=== PATIENT | female | born 1965 | race Asian ===

== ENCOUNTER 2024-10-30 12:59 | Outpatient (CLI) | payer OTHER, SELFPAY ==
--- NOTE | 2024-10-30 13:00 | ECG_ITS ---
Test Date: 2024-10-30 13:20:41 Measurements Intervals [place] Rate: 80 P: 70 CA: 223 QRS: 70 QRSD: 106 T: 50 QT: 385 QTc: 446 Interpretive Statements SINUS RHYTHM WITH FIRST DEGREE AV BLOCK BASELINE ARTIFACT- I, II, AVR, AVL, AVF BORDERLINE ECG No previous ECG available for comparison Electronically Signed On 10-30-2024 13:30:28 CDT by Antoine Rose D.O.
--- OUTSIDE RECORDS SUMMARY | 2024-10-30 13:09 | XMS_ITS | Clinical Summary ---
Author Organization [facility] Address [address] [place] [address] Care Team Providers Care Flatcar Whacker Name Role Phone Lauro Marlow MD Primary Care Provider [phone] Allergies No known active allergies Medications aspirin 81 mg enteric coated tablet Take 81 mg by mouth daily Active pravastatin (PRAVACHOL) 10 mg tablet Take 1 tablet (10 mg total) by mouth daily Active metFORMIN (GLUCOPHAGE) 1,000 mg tablet 2 times daily [address] (PROTONIX) 40 mg EC tablet Take 1 tablet (40 mg total) by mouth daily 30 tablet 1 Active metoclopramide (REGLAN) 5 mg tablet Take 1-2 tablets up to twice daily for nausea and vomiting. 60 tablet 1 1 Active ondansetron ODT (ZOFRAN-ODT) 4 mg disintegrating tablet 4 Active rosuvastatin (CRESTOR) 10 mg tablet Do not take with milk, antacids, or iron.Take or use exactly as directed.Do not take if . 3 Active insulin glargine (LANTUS) 100 unit/mL (3 mL) pen for injection Inject 35 Units under the skin 2 (two) times a day 15 mL 4 Active pen needle, diabetic 32 gauge x 32 needle Use as directed twice a day 100 each 4 Active glucagon (Baqsimi) 3 mg/actuation spray,non-aerosol One spray into one nostril once as directed by provider for low blood sugar. 1 each 4 Active lancets misc Use as directed up to 4 times a day. 100 each 1 4 Active HYDROcodone-acetami nophen (NORCO) 5-325 mg per tabletIndications:P ain Take 1 tablet by mouth every 6 (six) hours as needed for pain 10 tablet 4 Active cyclobenzaprine (FLEXERIL) 10 mg tablet Take 1 tablet (10 mg total) by mouth 2 (two) times a day as needed for muscle spasms 20 tablet 4 Active meloxicam (MOBIC) 15 mg tabletIndications:C hronic right shoulder pain Take 1 tablet (15 mg total) by mouth daily 30 tablet 3 4 11/27/19 25 Active Active Problems Problem Noted Date Diagnosed Date Hypophosphatemia 06/11/2023 Uncontrolled type 2 diabetes mellitus with hyper glycemia 06/11/2023 Diabetic ketoacidosis withou t coma associated with type 2 diabetes mellitus 06/08/2023 Diabetes mellitus 08/30/2020 Epigastric pain 08/30/2020 Nausea and vomiting 01/21/2019 Assessment & Plan (01/21/2019 2:12 PM CDT): Nausea after meals and will sometimes vomit. Pt also having early satiety and can only eat one meal a day. Pt also has known history of uncontrolled diabetes. High suspicion for gastroparesis. Will have patient undergo EGD. If EGD shows food residue or rules out other issues, will trial patient on Reglan. Encounter for screening colonoscopy 01/21/2019 Assessment & Plan (01/21/2019 2:13 PM CDT): Pt has never had screening colonoscopy before. She denies family history of colon cancer. Setup for screening colonoscopy to be done with EGD. Surgical History Surgery Date Site/Laterality Comments SECTION 1992, 1993, 1997, 1998 FLUORO GUIDED INJECTION SHOU LDER LEFT 03/07/2021 Left FLUORO GUIDED INJECTION SHOU LDER LEFT 11/14/2021 Left FLUORO GUIDED ASPIRATION OR INJECTION LARGE JOINT RIGHT 01/01/2024 Right Medical History Medical History Date Comments Body mass index (BMI) of 30.0-30.9 in adult Adult BMI 30.0-30.9 kg/sq m - (Added by TW Conv) Diabetes mellitus (HCC) Hyperlipidemia Type 2 diabetes mellitus (HCC) Family History Medical History Relation Name Comments Cancer Father Family history of malignant neoplasm - (Added by TW Conv) Hyperlipidemia Mother Family histor y of hyperlipidemia - (Added by TW Conv) Hypertension Mother Family history of hypertension - (Added by TW Conv) Relation Name Status Comments Father Mother Social History Tobacco Use Types Packs/Day Years Used Date Smoking Tobacco: Every Day Cigarettes Smokeless Tobacco: Never Alcohol Use Standard Drinks/Week Comments Never 0 (1 standard drink = 0.6 oz pur e alcohol) [facility] Utilities Answer Date Recorded In the past 12 months has e Abr[place], gas, oil, or water [employer] [place] threatened to shut off services in your home? No 06/10/2023 Social Connection and Isolat ion Panel [NHANES] Answer Date Recorded In a typical week, how many times do you talk on the phone with family, friends, or neighbors? More than three times a week 06/10/2023 How often do you get togethe r with friends or relatives? More than three times a week 06/10/2023 How often do you attend chur ch or worship services? Never 06/10/2023 Do you belong to any clubs o r organizations such as taoist groups, unions, fraternal or athletic groups, or school groups? No 06/10/2023 How often do you attend meet ings of the clubs or organizations you belong to? Never 06/10/2023 Are you , , di vorced, , never , or living with a partner? 06/10/2023 AUDIT-C Answer Date Recorded Frequency of Alcohol Consumption Never 01/21/2019 Average Number of Drinks Not on file 019 Frequency of Binge Drinking Not on file 08/2018 Overall Financial Resource Strain (CARDIA) Answe r Date Recorded How hard is it for you to pa y for the very basics like food, housing, medical care, and heating? Not hard at all 06/10/2023 Hunger Vital Sign Answer Date Recorded Within the past 12 months, y ou worried that your food would run out before you got the money to buy more. Never true 06/10/19 24 Within the past 12 months, t he food you bought just didn't last and you didn't have money to get more. Never true 06/10/2023 PRAPARE - Transportation Answer Date Re corded In the past 12 months, has l ack of transportation kept you from medical appointments or from getting medications? No 05/21 In the past 12 months, has l ack of transportation kept you from meetings, work, or from getting things needed for daily living? No 06/10/2023 Housing Stability Vital Sign Answer Magdy e Recorded In the last 12 months, was t here a time when you were not able to pay the mortgage or rent on time? No 06/10/2023 In the last 12 months, how many places have you lived? 1 06/10/2023 In the last 12 months, was t here a time when you did not have a steady place to sleep or slept in a long-term (including now)? No 06/10/2023 Personal Safety Answer Date Recorded Have you ever been in or are you currently in a harmful physical or emotional relationship or is someone making you feel afraid or unsafe? Denies 08/30/2023 Comments No Sex and Gender Information Value Date Recorded Sex Assigned at Not on file Legal Sex Female 7:44 PM WOMEN DESIGNER Gender Identity Not on file Sexual Orientation Not on file Obstetrics History Last Filed Vital Signs Vital Sign Reading Time Taken Comments Blood Pressure 147/90 08/30/2023 4:00 PM CDT Pulse 82 08/30/2023 4:00 PM CDT Temperature 37 C (98.6 F) 08/30/2023 12:48 PM CDT Respiratory Rate 20 08/30/2023 3:50 PM CDT Oxygen Saturation 99% 08/30/2023 4:00 PM CDT Inhaled Oxygen Concentration - - Weight 81.9 kg (180 lb 8.9 oz) 08/30/2023 12:48 PM CDT Height 165 cm (5' 4.96) 06/08/2023 5:00 PM WOMEN DESIGNER Body Mass Index 30.08 06/08/2023 5:00 PM WOMEN DESIGNER Plan of Treatment Health Maintenance Due Date Last Done Comments Albumin Creatinine Ratio, Urine 1965 Breast Cancer Screening-Mammogram 1967 Cervical Cancer Screening 1967 Depression Screening 1967 Hepatitis C Screening 1967 Dilated Eye Exam 1967 Foot Exam 1967 Hepatitis B Screening 07/30/1985 Regular Well Visit/Exam 18-64 07/30/1985 Lipid Panel 07/22/2014 07/22/2013 Hemoglobin A1C 12/08/2023 06/09/2023 Covid-19 Vaccine (2023-2 5 season) 2024 05/01/2021, 09/16/2020, 08/19/2020 eGFR 06/10/2024 06/10/2023, 05/21, 06/09/2023, Additional history exists Influenza Vaccine (Season Ended) 2025 03/11/2012, 04/07/2010, 03/03/2009, Additional history exists DTaP/Tdap/Td Vaccine (3 - Td or Tdap) 01/12/2029 01/12/2019, 03/19/2007 Colon Cancer Screening-Colonoscopy 02/09/2029 02/09/2019 Colon Cancer Screening-CT Colonography Discontinued 02/09/2019 Colon Cancer Screening-DNA Stool Discontinued 02/10/20 Colon Cancer Screening-FIT Discontinued 02/09/2019 Colon Cancer Screening-Sigmoidoscopy Discontinued 02/09/2019 Zoster Vaccine Completed 03/08/2020, 01/12/2019 Pneumococcal vaccine <65 Completed 06/05/2022 Medical Devices Implanted Type Area Numerical Control Programmer Device Identifier Shelf Expiration Date Model / Serial / Lot Teeth N/A: Mouth Procedures Procedure Name Priority Date/Time Associated Diagnosis Comments EGFR Timed 06/10/2023 4:07 AM WOMEN DESIGNER HEMOGLOBIN A1C Routine 06/09/2023 4:24 AM WOMEN DESIGNER COLONOSCOPY 02/09/2019 1:56 PM CDT PLASMA LIPID PANEL Routine 07/22/2013 5: 01 AM WOMEN DESIGNER from Last 3 Months or Most Recently Relevant to Health Maintenance Results * eGFR (06/10/2023 4:07 AM WOMEN DESIGNER) eGFR 106 mL/min/1. 73 m2 [facility] Comment: Interpretive Data Reference Interval Normal >/= 90 mL/min/1.73m2 Mildly decreased* 60 - 89 mL/min/1.73m2 Mildly to moderately decreased 45 - 59 mL/min/1.73m2 Moderately to severely decreased 30 - 44 mL/min/1.73m2 Severely decreased 15 - 29 mL/min/1.73m2 Kidney Failure < 15 mL/min/1.73m2 *Relative to young adult level Estimated glomerular filtration rate is determined by the 2020 CKD-EPI equation recommended by the National Kidney Foundation (A Unifying Approach to GFR Estimation: Recommendations of the NKF-ASK Task Force on Reassessing the Inclusion of Race in Diagnosing Kidney Disease, JASN 2020). The CKD-EPI equation should not be used for patients with unstable renal function and has not been validated in children and those over 70. Current interpretive data was last reviewed 2021. Testing performed by: [address] [address] Blood 06/10/2023 4:07 AM WOMEN DESIGNER 06/10/2023 4:16 AM WOMEN DESIGNER us Oscar Wallace MD LAB BLOOD ORDERABLES F inal Result [facility] [address] [facility] [place] [address] * (ABNORMAL) Hemoglobin A1c (06/09/2023 4:24 AM WOMEN DESIGNER) Hgb A1C 10.8(H) 4.0 - 5.6 % [facility] Comment:Testing performed by : [address] [address] Estimated Average Glucose 263 mg/dL [facility] Comment: The ADA recommends reporting an estimated Average Glucose (eAG) with all Hemoglobin A1c results using the equation derived from a study of 507 normal and diabetic adults. Minority populations were underrepresented and children were not included. (Diabetes Care 31:5877-2940, 2008). The eAG is not equivalent to a fasting glucose. Testing performed by: [facility], [address] [place] [address], [place]., [address] Blood 06/09/2023 4:24 AM WOMEN DESIGNER 06/09/2023 4:31 AM WOMEN DESIGNER us Isha Garcia MD LAB BLOOD ORDERABLES Final Result [facility] [address] [facility] [place] [address] * COLONOSCOPY (02/09/2019 1:56 PM CDT) Anatomical Region Laterality Modality Other Narrative Procedure Note Dioni Hsieh MD - 02/09/2019 1:56 PM CDT [facility] Patient Name: Jericho Solitario Procedure Date: 02/09/2019 1:56 PM Date of : 1965 Admit Type: Outpatient Age: 53 Gender: Female Attending MD: Dioni Hsieh M.D. Room: [facility]COPY ROOM 1 Note Status: Finalized Patient Profile: This is a 53 year old female. No family history of colon cancer. Screening colonoscopy. Procedure: Colonoscopy Indications: This is the patient's first colonoscopy, Screeningfor colorectal malignant neoplasm Referring MD: Jorge Nelson M.D. Providers: Dioni Hsieh M.D. Impression: - Mild diverticulosis in the cecum and ascendingcolon. - Three 2 to 3 mm polyps in the rectum, removed witha jumbo cold forceps. Resected and retrieved. - Internal hemorrhoids. Recommendation: - Await pathology results. - Repeat colonoscopy in 5-10 years for screening purposes. - Continue present medications. Medicines: Monitored Anesthesia Care Complications: No immediate complications. Estimated Blood Loss: Estimated blood loss: none. Procedure: Pre-Anesthesia Assessment: - Prior to the procedure, a History and Physical was performed, and patient medications and allergieswere reviewed. The patient's tolerance of previous anesthesia was also reviewed. The risks and benefitsof the procedure and the sedation options and riskswere discussed with the patient. All questions were answered, and informed consent was obtained. Prior Anticoagulants: The patient has taken no previous anticoagulant or antiplatelet agents. ASA Grade Assessment: II - A patient with mild systemicdisease. After reviewing the risks and benefits, the patientwas deemed in satisfactory condition to undergo the procedure. The benefits, risks and alternatives of theprocedure and sedation were discussed and informed consent was obtained. All questions were answered. Please referto the signed informed consent document in the medical record. Bowel prep was administered using a splitdose. The scope was passed under direct vision. ThePediatric Colonoscope PCF-H190L [id number] was introducedthrough the anus and advanced to the the cecum, identifiedby appendiceal orifice and ileocecal valve. The qualityof the bowel preparation was good. The bowelpreparation used was Miralax. Findings: The perianal and digital rectal examinations were normal. The cecum appeared normal. The terminal ileum was normal The colon (entire examined portion) appeared normal overall. Fewsmall isolated diverticuli noted in the cecum and proximal ascendingcolon. Three sessile polyps were found in the rectum. The polyps were 2 to 3mm in size. These polyps were removed with a jumbo cold forceps.Resection and retrieval were complete. Internal hemorrhoids were found during retroflexion. The hemorrhoids were small. Electronically signed by Dioni Hsieh M.D. Dioni Hsieh M.D. 02/09/2019 3:05:51 PM Number of Addenda: 0 Note Initiated On: 02/09/2019 1:56 PM Procedure Code(s): --- Professional --- 16218, Colonoscopy, flexible; with biopsy, single or multiple Diagnosis Code(s): --- Professional --- Z12.11, Encounter for screening for malignant neoplasm of colon K64.8, Other hemorrhoids K62.1, Rectal polyp CPT copyright 2017 [employer]. All rights reserved. The codes documented in this report are preliminary and upon data coder operator reviewmay be revised to meet current compliance requirements. Recognized by the [place] [employer] for promoting quality in endoscopy Dioni Hsieh MD ENDOSCOPY PROCEDURES Final Result * (ABNORMAL) Plasma lipid panel (07/22/2013 5:01 AM WOMEN DESIGNER) Cholesterol 193 140 - 199 mg/dl HISTORICAL RESULTS Triglycerides 437(H) 20 - 150 mg/dl HISTORICAL RESULTS HDL 34(L) 40 - 60 mg/dl HISTORICAL RESULTS LDL See note 65 - 100 mg/dl HISTORICAL RESULTS Plasma 07/22/2013 5:01 AM WOMEN DESIGNER Narrative HISTORICAL RESULTS - 07/22/2013 9:32 AM WOMEN DESIGNER Unable to calculate LDL due to elevated triglyceride. Lauren Rodrigues MD LAB BLOOD ORDERABLES Final Resu lt HISTORICAL RESULTS from Last 3 Months or Most Recently Relevant to Health Maintenance Insurance [facility] [place] [address] [facility] [place] [address] [facility] Advance Directives For more information, please contact: [phone] * Full Code (Latest Code Status on File) Date Activated Date Inactivated Comments 06/08/2023 4:35 PM 06/11/2023 3:56 PM * Full Code Date Activated Date Inactivated Comments 02/09/2019 1:15 PM 02/09/2019 7:43 PM * Full Code Date Activated Date Inactivated Comments 02/09/2019 1:15 PM 02/09/2019 1:15 PM Care Teams Flatcar Whacker Relationship Specialty Start Date End Date Lauro Marlow MD PCP - General 05/27/17
--- OUTSIDE RECORDS SUMMARY | 2024-10-30 13:09 | XMS_ITS | Clinical Summary ---
Author Organization [facility] Address [address] [place] [address] Care Team Providers Care Vascular Manager Name Role Phone Unavailable Primary Care Provider Unavailabl e Social History Tobacco Use Types Packs/Day Years Used Date Smoking Tobacco: Never Assessed Comments Unknown Sex and Gender Information Value Date Recorded Sex Assigned at Not on file Legal Sex Female 7:51 AM FORMING MACHINE UPKEEP MECHANIC Gender Identity Not on file Sexual Orientation Not on file Plan of Treatment Health Maintenance Due Date Last Done Comments Hepatitis C Virus (HCV) Screening 1965 TdaP Immunization 1965 Hepatitis B Immunization (1 of 3 - 19+ 3-dose series) 07/30/1986 Pap Smear 07/30/1988 Cervical Cancer Screening (CCS) 07/30/1997 HPV/Cotest 07/30/1997 Colonoscopy 07/30/2012 Colorectal Cancer Screening 07/30/2012 Cologuard 07/30/2017 Immunochemical Fecal Occult Blood 07/30/2017 Mammogram 07/30/2017 Pneumococcal Immunization (5 0+ years) (1 of 1 - PCV) 07/30/2017 Zoster Immunization (1 of 2) 07/30/2017 Influenza Immunization (#1) 2024 SARS-COV-2 Immunization ( - season) 2024 Respiratory Syncytial Virus (RSV) Immunization (Adult) (1 - 1-dose 75+ series) 07/30/2042 Meningococcal Immunization (ACWY) Aged Out No longer eligible based on patient's age to complete this topic Pneumococcal Immunization Combined Aged Out No longer eligible based on patient's age to complete this topic Rotavirus Immunization Aged Out No lo nger eligible based on patient's age to complete this topic Insurance [employer] on file
--- OUTSIDE RECORDS SUMMARY | 2024-10-30 13:09 | XMS_ITS | Referral Summary ---
Author Organization [facility] Address [address] [place] [address] Care Team Providers Care Tongue Presser Name Role Phone Lauro Marlow MD Primary Care Provider [phone] Allergies No known active allergies Medications aspirin [...] screening colonoscopy to be done with EGD. Social History Tobacco Use Types Packs/Day Years Used Date Smoking Tobacco: Every Day Cigarettes Smokeless Tobacco: Never Alcohol Use Standard Drinks/Week Comments Never 0 (1 standard drink = 0.6 oz pur e alcohol) [facility] Utilities Answer Date Recorded In the past 12 months has th e electric, gas, oil, or water company threatened to shut off services in your [...] often do you attend chur ch or tenriism services? Never 06/10/2023 Do you belong to any clubs o r organizations such as adventism groups, unions, fraternal or athletic groups, or [...] place to sleep or slept in a half-way (including now)? No 06/10/2023 Personal Safety Answer Date Recorded Have you ever been in or are you currently in a harmful physical or emotional relationship or is someone making you feel afraid or unsafe? Denies 08/30/2023 Comments No Sex and Gender Information Value Date Recorded Sex Assigned at Not on file Legal Sex Female 7:44 PM GUNCOTTON PACKER Gender Identity Not on file Sexual Orientation Not on file Last Filed Vital Signs Vital Sign Reading [...] 165 cm (5' 4.96) 06/08/2023 5:00 PM GUNCOTTON PACKER Body Mass Index 30.08 06/08/2023 5:00 PM GUNCOTTON PACKER Plan of Treatment Not on file Medical Devices Implanted Type Area Director Security Risk Management Device Identifier Shelf Expiration Date Model / Serial / Lot Teeth N/A: Mouth Procedures Procedure Name Priority Date/Time Associated Diagnosis Comments EGFR Timed 06/10/2023 4:07 AM GUNCOTTON PACKER HEMOGLOBIN A1C Routine 06/09/2023 4:24 AM GUNCOTTON PACKER COLONOSCOPY 02/09/2019 1:56 PM CDT PLASMA LIPID PANEL Routine 07/22/2013 5: 01 AM GUNCOTTON PACKER from Last 3 Months or Most Recently Relevant to Health Maintenance Results * eGFR (06/10/2023 4:07 AM GUNCOTTON PACKER) eGFR 106 mL/min/1. 73 m2 [facility] [...] was last reviewed 2021. Testing performed by: [address] [address] Blood 06/10/2023 4:07 AM GUNCOTTON PACKER 06/10/2023 4:16 AM GUNCOTTON PACKER us Oscar Wallace MD LAB BLOOD ORDERABLES F inal Result [facility] [address] [facility] Department [place] [address] * (ABNORMAL) Hemoglobin A1c (06/09/2023 4:24 AM GUNCOTTON PACKER) Hgb A1C 10.8(H) 4.0 - 5.6 % [facility] Comment:Testing performed by : [address] [address] Estimated Average Glucose 263 mg/dL [facility] Comment: The ADA recommends reporting an estimated Average Glucose (eAG) with all Hemoglobin A1c results using the equation derived from a study of 507 normal and diabetic adults. Minority populations were underrepresented and children were not included. (Diabetes Care 31:3563-9772, 2008). The eAG is not equivalent to a fasting glucose. Testing performed by: [address] [place] [address] Blood 06/09/2023 4:24 AM GUNCOTTON PACKER 06/09/2023 4:31 AM GUNCOTTON PACKER us Isha Garcia MD LAB BLOOD ORDERABLES Final Result [facility] [address] [facility] Department [place] [address] * COLONOSCOPY (02/09/2019 1:56 PM CDT) Anatomical Region Laterality Modality Other Narrative Procedure Note Dioni Hsieh MD - 02/09/2019 1:56 PM CDT [facility] Patient Name: Jericho Solitario Procedure Date: 02/09/2019 1:56 PM Date of : 1965 Admit Type: Outpatient Age: 53 Gender: Female Attending MD: Dioni Hsieh M.D. Room: [facility] RO[facility] 1 Note Status: Finalized Patient Profile: This is a 53 year old female. No family history of colon cancer. Screening colonoscopy. Procedure: Colonoscopy Indications: This is the patient's first colonoscopy, Screeningfor colorectal malignant neoplasm Referring MD: Jorge Nelson M.D. Providers: Ahdelmi Hsieh M.D. Impression: - Mild diverticulosis in [...] passed under direct vision. ThePediatric Colonoscope PCF-H190L [id number] was introducedthrough the anus and advanced to [...] 1:56 PM Procedure Code(s): --- Professional --- 81744, Colonoscopy, flexible; with biopsy, single or multiple Diagnosis Code(s): --- Professional --- Z12.11, Encounter for screening for malignant neoplasm of colon K64.8, Other hemorrhoids K62.1, Rectal polyp CPT copyright 2017 [employer]. All rights reserved. The codes documented in this report are preliminary and upon middle school librarian reviewmay be revised to meet current compliance requirements. Recognized by the [employer] for promoting quality in endoscopy Doini Hsieh MD ENDOSCOPY PROCEDURES Final Result * (ABNORMAL) Plasma lipid panel (07/22/2013 5:01 AM GUNCOTTON PACKER) Cholesterol 193 140 - 199 mg/dl HISTORICAL RESULTS Triglycerides 437(H) 20 - 150 mg/dl HISTORICAL RESULTS HDL 34(L) 40 - 60 mg/dl HISTORICAL RESULTS LDL See note 65 - 100 mg/dl HISTORICAL RESULTS Plasma 07/22/2013 5:01 AM GUNCOTTON PACKER Narrative HISTORICAL RESULTS - 07/22/2013 9:32 AM GUNCOTTON PACKER Unable to calculate LDL due to elevated triglyceride. Lauren Rodrigues MD LAB BLOOD ORDERABLES Final Resu lt HISTORICAL RESULTS from Last 3 Months or Most Recently Relevant to Health [place] [address] [facility] [place] [address] [facility] [place] [address] [facility] Advance Directives For more information, please contact: [phone] * Full Code (Latest Code Status on File) Date Activated Date Inactivated Comments 06/08/2023 4:35 PM 06/11/2023 3:56 PM * Full Code Date Activated Date Inactivated Comments 02/09/2019 1:15 PM 02/09/2019 7:43 PM * Full Code Date Activated Date Inactivated Comments 02/09/2019 1:15 PM 02/09/2019 1:15 PM Care Teams Tongue Presser Relationship Specialty Start Date End Date Lauro Marlow MD PCP - General 05/27/17
[2024-10-30 13:38] LABS: Anion Gap 8 mmol/L (4-12); Blood Urea Nitrogen 16 mg/dL (7-17); Calcium 9.4 mg/dL (8.4-10.2); Carbon Dioxide 27 mmol/L (22-30); Chloride 102 mmol/L (98-107); Estimated Glomerular Filt Rate > 60; Glucose 310 mg/dL (65-110); Potassium 3.8 mmol/L (3.4-5.0); Sodium 137 mmol/L (137-145)
== END 2024-10-30 13:00 | disposition home or self-care (01) ==
LOC: ANHSURGERY 13:06
PROVIDERS: Anesthesiology; PCP Family Medicine; Visit Provider Plastic Surgery
DX: Z01.818 Encounter for other preprocedural examination (principal); E11.9 Type 2 diabetes mellitus without complications; Z72.0 Tobacco use; R94.31 Abnormal electrocardiogram [ECG] [EKG]
CPT/HCPCS: 36415; 80048; 93005

== ENCOUNTER 2024-11-02 09:57 | Outpatient (CLI) | payer OTHER, SELFPAY ==
--- OUTSIDE RECORDS SUMMARY | 2024-11-02 10:44 | XMS_ITS | Encounter Summary ---
Author Organization [facility] Address [address] [place] [id number] Care Team Providers Care Handkerchief Presser Name Role Phone Gabriele Woodruff MD Primary Care Provider Encounter Details Date Type Department Care Team (Late st Contact Info) Description 06/25/2024 YellowPepper Message Enc [facility] Family Medicine - [place] [address], [address] [place] [id number] Contents First, [facility] Provider Appointment Needed Social History Tobacco Use Types Packs/Day Years Used Date Smoking Tobacco: Every Day Cigarettes 0.5 32 Passive Smoke Exposure: Current Comments:On Chantix. 1-2 cig /day- physician will discuss smoking cessation Passive Exposure Comments:pt has not smoked in four days Alcohol Use Standard Drinks/Week Comments Never 0 (1 standard drink = 0.6 oz pur e alcohol) AUDIT-C Answer Date Recorded Q1: How often do you have a drink containing alc ohol? Never 11/11/2020 Average Number of Drinks Not on file 021 Frequency of Binge Drinking Not on file 10/19 PHQ-2 Answer Date Recorded Patient Health Questionnaire-2 Score 0 04/01/2024 Comments No Sex and Gender Information Value Date Recorded Sex Assigned at Female 06/11/2024 11:07 AM MACHINE ASSEMBLER Legal Sex Female 5:11 PM CDT Gender Identity Not on file Sexual Orientation Not on file documented as of this encounter Plan of Treatment Not on file documented as of this encounter Visit Diagnoses Not on filedocumented in this encounter Additional Health Concerns Assessment Noted Time PHQ-9 Depression Total Score: 0 11/06/20 24 2:03 PM MACHINE ASSEMBLER documented as of this encounter Care Teams Handkerchief Presser Relationship Specialty Start Date End Date Gabriele Woodruff MD [address] [address] PCP - General FAMILY PRACTICE 11/07/22 documented as of this encounter
--- OUTSIDE RECORDS SUMMARY | 2024-11-02 10:44 | XMS_ITS | Clinical Summary ---
Author Organization [facility] Address [address] [place] [address] Care Team Providers Care Asphalt Spreader Name Role Phone Lauro Marlow MD Primary Care Provider [phone] Allergies No known active allergies Medications aspirin [...] drink = 0.6 oz pur e alcohol) [facility] Utilities Answer Date Recorded In the past 12 months has e [employer], gas, oil, or water [employer] threatened to shut off services in your [...] often do you attend chur ch or bahai services? Never 06/10/2023 Do you belong to any clubs o r organizations such as pentecostalism groups, unions, fraternal or athletic groups, or [...] place to sleep or slept in a senior care (including now)? No 06/10/2023 Personal Safety Answer Date Recorded Have you ever been in or are you currently in a harmful physical or emotional relationship or is someone making you feel afraid or unsafe? Denies 08/30/2023 Comments No Sex and Gender Information Value Date Recorded Sex Assigned at Not on file Legal Sex Female 7:44 PM MASONRY CONTRACTOR ADMINISTRATOR Gender Identity Not on file Sexual Orientation [...] 165 cm (5' 4.96) 06/08/2023 5:00 PM MASONRY CONTRACTOR ADMINISTRATOR Body Mass Index 30.08 06/08/2023 5:00 PM MASONRY CONTRACTOR ADMINISTRATOR Plan of Treatment Health Maintenance Due Date [...] Completed 06/05/2022 Medical Devices Implanted Type Area Production Cloth Cutter Device Identifier Shelf Expiration Date Model / Serial / Lot Teeth N/A: Mouth Procedures Procedure Name Priority Date/Time Associated Diagnosis Comments EGFR Timed 06/10/2023 4:07 AM MASONRY CONTRACTOR ADMINISTRATOR HEMOGLOBIN A1C Routine 06/09/2023 4:24 AM MASONRY CONTRACTOR ADMINISTRATOR COLONOSCOPY 02/09/2019 1:56 PM CDT PLASMA LIPID PANEL Routine 07/22/2013 5: 01 AM MASONRY CONTRACTOR ADMINISTRATOR from Last 3 Months or Most Recently Relevant to Health Maintenance Results * eGFR (06/10/2023 4:07 AM MASONRY CONTRACTOR ADMINISTRATOR) eGFR 106 mL/min/1. 73 m2 [facility] [...] was last reviewed 2021. Testing performed by: [address] [address] Blood 06/10/2023 4:07 AM MASONRY CONTRACTOR ADMINISTRATOR 06/10/2023 4:16 AM MASONRY CONTRACTOR ADMINISTRATOR us Oscar Wallace MD LAB BLOOD ORDERABLES F inal Result [facility] [address] [facility] Department [place] [address] * (ABNORMAL) Hemoglobin A1c (06/09/2023 4:24 AM MASONRY CONTRACTOR ADMINISTRATOR) Hgb A1C 10.8(H) 4.0 - 5.6 % [facility] Comment:Testing performed by : [address] [address] Estimated Average Glucose 263 mg/dL [facility] Comment: The ADA recommends reporting an estimated Average Glucose (eAG) with all Hemoglobin A1c results using the equation derived from a study of 507 normal and diabetic adults. Minority populations were underrepresented and children were not included. (Diabetes Care 31:3677-8899, 2008). The eAG is not equivalent to a fasting glucose. Testing performed by: [facility], [address] [place] [address], [place]., [address] Blood 06/09/2023 4:24 AM MASONRY CONTRACTOR ADMINISTRATOR 06/09/2023 4:31 AM MASONRY CONTRACTOR ADMINISTRATOR us Isha Garcia MD LAB BLOOD ORDERABLES Final Result [facility] [address] [facility] Department [place] [address] * COLONOSCOPY (02/09/2019 1:56 PM CDT) Anatomical Region Laterality Modality Other Narrative Procedure Note Dioni Hsieh MD - 02/09/2019 1:56 PM CDT [facility] Patient Name: Jericho Solitario Procedure Date: 02/09/2019 1:56 PM Date of : 1965 Admit Type: Outpatient Age: 53 Gender: Female Attending MD: Dioni Hsieh M.D. Room: [facility] RO[facility] 1 Note Status: Finalized Patient [...] passed under direct vision. ThePediatric Colonoscope PCF-H190L [id number] was introducedthrough the anus and advanced to [...] 1:56 PM Procedure Code(s): --- Professional --- 64975, Colonoscopy, flexible; with biopsy, single or multiple Diagnosis Code(s): --- Professional --- Z12.11, Encounter for screening for malignant neoplasm of colon K64.8, Other hemorrhoids K62.1, Rectal polyp CPT copyright 2017 [employer]. All rights reserved. The codes documented in this report are preliminary and upon an/ssn 2 4 operator reviewmay be revised to meet current compliance requirements. Recognized by the [employer] for promoting quality in endoscopy Dioni Hsieh MD ENDOSCOPY PROCEDURES Final Result * (ABNORMAL) Plasma lipid panel (07/22/2013 5:01 AM MASONRY CONTRACTOR ADMINISTRATOR) Cholesterol 193 140 - 199 mg/dl HISTORICAL RESULTS Triglycerides 437(H) 20 - 150 mg/dl HISTORICAL RESULTS HDL 34(L) 40 - 60 mg/dl HISTORICAL RESULTS LDL See note 65 - 100 mg/dl HISTORICAL RESULTS Plasma 07/22/2013 5:01 AM MASONRY CONTRACTOR ADMINISTRATOR Narrative HISTORICAL RESULTS - 07/22/2013 9:32 AM MASONRY CONTRACTOR ADMINISTRATOR Unable to calculate LDL due to elevated triglyceride. Lauren Rodrigues MD LAB BLOOD ORDERABLES Final Resu lt HISTORICAL RESULTS from Last 3 Months or Most Recently Relevant to Health Maintenance Insurance [facility] [place] [address] [facility] [place] [address] [facility] Advance Directives For more information, please contact: [phone] * Full Code (Latest Code Status on File) Date Activated Date Inactivated Comments 06/08/2023 4:35 PM 06/11/2023 3:56 PM * Full Code Date Activated Date Inactivated Comments 02/09/2019 1:15 PM 02/09/2019 7:43 PM * Full Code Date Activated Date Inactivated Comments 02/09/2019 1:15 PM 02/09/2019 1:15 PM Care Teams Asphalt Spreader Relationship Specialty Start Date End Date Lauro Marlow MD PCP - General 05/27/17
--- OUTSIDE RECORDS SUMMARY | 2024-11-02 10:44 | XMS_ITS | Referral Summary ---
Author Organization [facility] Address [address] [place] [address] Care Team Providers Care Obiee Consultant Name Role Phone Lauro Marlow MD Primary Care Provider [phone] Allergies No known active allergies Medications aspirin [...] drink = 0.6 oz pur e alcohol) [facility] Utilities Answer Date Recorded In the [...] any clubs o r organizations such as restorationist groups, unions, fraternal or athletic groups, or [...] place to sleep or slept in a group home (including now)? No 06/10/2023 Personal Safety Answer Date Recorded Have you ever been in or are you currently in a harmful physical or emotional relationship or is someone making you feel afraid or unsafe? Denies 08/30/2023 Comments No Sex and Gender Information Value Date Recorded Sex Assigned at Not on file Legal Sex Female 7:44 PM SOCIAL GROUP WORKER Gender Identity Not on file Sexual Orientation [...] 165 cm (5' 4.96) 06/08/2023 5:00 PM SOCIAL GROUP WORKER Body Mass Index 30.08 06/08/2023 5:00 PM SOCIAL GROUP WORKER Plan of Treatment Not on file Medical Devices Implanted Type Area Health Care Facilities Inspector Device Identifier Shelf Expiration Date Model / Serial / Lot Teeth N/A: Mouth Procedures Procedure Name Priority Date/Time Associated Diagnosis Comments EGFR Timed 06/10/2023 4:07 AM SOCIAL GROUP WORKER HEMOGLOBIN A1C Routine 06/09/2023 4:24 AM SOCIAL GROUP WORKER COLONOSCOPY 02/09/2019 1:56 PM CDT PLASMA LIPID PANEL Routine 07/22/2013 5: 01 AM SOCIAL GROUP WORKER from Last 3 Months or Most Recently Relevant to Health Maintenance Results * eGFR (06/10/2023 4:07 AM SOCIAL GROUP WORKER) eGFR 106 mL/min/1. 73 m2 [facility] [...] was last reviewed 2021. Testing performed by: [address] [address] Blood 06/10/2023 4:07 AM SOCIAL GROUP WORKER 06/10/2023 4:16 AM SOCIAL GROUP WORKER us Oscar Wallace MD LAB BLOOD ORDERABLES F inal Result [facility] [address] [facility] Department [place] [address] * (ABNORMAL) Hemoglobin A1c (06/09/2023 4:24 AM SOCIAL GROUP WORKER) Hgb A1C 10.8(H) 4.0 - 5.6 % [facility] Comment:Testing performed by : [address] [address] Estimated Average Glucose 263 mg/dL [facility] Comment: The ADA recommends reporting an estimated Average Glucose (eAG) with all Hemoglobin A1c results using the equation derived from a study of 507 normal and diabetic adults. Minority populations were underrepresented and children were not included. (Diabetes Care 31:5413-4633, 2008). The eAG is not equivalent to a fasting glucose. Testing performed by: [address] [place]., [address] Blood 06/09/2023 4:24 AM SOCIAL GROUP WORKER 06/09/2023 4:31 AM SOCIAL GROUP WORKER us Isha Garcia MD LAB BLOOD ORDERABLES Final Result [facility] [address] [facility] Department [place] [address] * COLONOSCOPY (02/09/2019 1:56 PM CDT) Anatomical Region Laterality Modality Other Narrative Procedure Note Dioni Hsieh MD - 02/09/2019 1:56 PM CDT [facility] Patient Name: Jericho Solitario Procedure Date: 02/09/2019 1:56 PM Date of : 1965 Admit Type: Outpatient Age: 53 Gender: Female Attending MD: Dioni Hsieh M.D. Room: [facility] ENDOSCOPY ROOM 1 Note Status: Finalized Patient [...] passed under direct vision. ThePediatric Colonoscope PCF-H190L [id number] was introducedthrough the anus and advanced to [...] 1:56 PM Procedure Code(s): --- Professional --- 455[address], Colonoscopy, flexible; with biopsy, single or multiple Diagnosis Code(s): --- Professional --- Z12.11, Encounter for screening for malignant neoplasm of colon K64.8, Other hemorrhoids K62.1, Rectal polyp CPT copyright 2017 [employer]. All rights reserved. The codes documented in this report are preliminary and upon ham curer reviewmay be revised to meet current compliance requirements. Recognized by the [employer] G[employer] for promoting quality in endoscopy Dioni Hsieh MD ENDOSCOPY PROCEDURES Final Result * (ABNORMAL) Plasma lipid panel (07/22/2013 5:01 AM SOCIAL GROUP WORKER) Cholesterol 193 140 - 199 mg/dl HISTORICAL RESULTS Triglycerides 437(H) 20 - 150 mg/dl HISTORICAL RESULTS HDL 34(L) 40 - 60 mg/dl HISTORICAL RESULTS LDL See note 65 - 100 mg/dl HISTORICAL RESULTS Plasma 07/22/2013 5:01 AM SOCIAL GROUP WORKER Narrative HISTORICAL RESULTS - 07/22/2013 9:32 AM SOCIAL GROUP WORKER Unable to calculate LDL due to elevated triglyceride. Lauren Rodrigues MD LAB BLOOD ORDERABLES Final Resu lt HISTORICAL RESULTS from Last 3 Months or Most Recently Relevant to Health Maintenance [place] [address] [facility] [address] [place] [address] [facility] [place] [address] [facility] Advance Directives For more information, please contact: [phone] * Full Code (Latest Code Status on File) Date Activated Date Inactivated Comments 06/08/2023 4:35 PM 06/11/2023 3:56 PM * Full Code Date Activated Date Inactivated Comments 02/09/2019 1:15 PM 02/09/2019 7:43 PM * Full Code Date Activated Date Inactivated Comments 02/09/2019 1:15 PM 02/09/2019 1:15 PM Care Teams Obiee Consultant Relationship Specialty Start Date End Date Lauro Marlow MD PCP - General 05/27/17
--- OUTSIDE RECORDS SUMMARY | 2024-11-02 10:44 | XMS_ITS | Clinical Summary ---
Author Organization [facility] Address [address] [place] [address] Care Team Providers Care Track Maintainer Name Role Phone Gabriele Woodruff MD Primary Care Provider Allergies No known active allergies Medications Continuous Blood Gluc Sensor (FREESTYLE CAROLYN 3 SENSOR) Misc every 14 (fourteen) days. 06/11/19 24 Active insulin glargine (LANTUS SOLOSTAR) 100 UNIT/ML injection (PEN)Indications:Type 2 diabetes mellitus without complication, with long-term current use of insulin ([facility]) Inject 30 Units into the skin nightly at bedtime. 30 mL 3 07/11/19 24 Active Insulin Pen Needle (B-D ULTRAFINE III SHORT PEN) 31G X 8 MM MiscIndications:Type 2 diabetes mellitus with stage 2 chronic kidney disease, with long-term current use of insulin ([facility]) Use pen needle with Lantus Solostar nightly Dx: DM 100 each 11/04/19 24 Active empagliflozin (JARDIANCE) 25 MG tabletIndications:Type 2 diabetes mellitus with stage 2 chronic kidney disease, with long-term current use of insulin ([facility]) Take 1 tablet (25 mg total) by mouth daily. 90 tablet 3 02/19/20 24 Active tirzepatide (MOUNJARO) 7.5 MG/0.5ML injectionIndications:Cindy betes Mellitus Inject 7.5 mg into the skin once a week. Indications : Diabetes 6 mL 3 06/11/19 25 Active rosuvastatin (CRESTOR) 10 MG tabletIndications:Pure hypercholesterolemia Take 1 tablet (10 mg total) by mouth nightly at bedtime. 90 tablet 3 07/21/19 25 Active varenicline (CHANTIX CONTINUING MONTH KAYLENE) 1 MG tabletIndications:Cigare tte nicotine dependence without complication Take 1 tablet (1 mg total) by mouth 2 (two) times daily. 60 tablet 07/21/19 25 Active metFORMIN ER (GLUCOPHAGE-XR) 500 MG 24 hr tabletIndications:Type 2 diabetes mellitus with stage 2 chronic kidney disease, with long-term current use of insulin ([facility]) Take 1 tablet (500 mg total) by mouth 2 (two) times daily. 180 tablet 3 07/21/19 25 Active Active Problems Problem Noted Date Diagnosed Date Lipoprotein deficiency 07/20/2024 Closed fracture of sacrum an d coccyx with routine healing, subsequent encounter 04/01/2024 Intertrigo 12/17/2023 Situational mixed anxiety and depressive disorde r 09/30/2023 Diabetic ketoacidosis withou t coma associated with type 2 diabetes mellitus (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) 11/07/2022 Overweight with body mass in dex (BMI) of 28 to 28.9 in adult 11/07/2022 Cigarette nicotine dependence without complicati on 11/07/2022 Trigger finger of left thumb 11/07/2022 Resolved Problems Problem Noted Date Diagnosed Date Resolved Date Screening for colon cancer 04/08/2023 1 06/15/2022 Screening for colon cancer 04/08/2023 1 06/23/2022 Immunizations Immunization Administration Dates Next Due H1N1 Injectable 2009 Influenza 06/17/2009 Influenza (FluMist) 03/11/2012 Influenza (Generic) 04/07/2010,03/03/2009,2005 Pneumococcal (Prevnar 20) 06/05/2022 Shingrix 03/08/2020,01/12/2019 Td (TDVAX) 01/12/2019 Tdap (Generic) 03/19/2007 Family History Medical History Relation Comments Cancer Father stomach cancer Hypertension Father Hyperlipidemia Mother Hypertension Mother Relation Status Comments Father Mother Alive Social History Tobacco Use Types Packs/Day Years Used Date Smoking Tobacco: Every Day Cigarettes 0.5 32 Passive Smoke Exposure: Current Tobacco Cessation:Ready to Q uit: No; Counseling Given: Yes Comments:On Chantix. 1-2 cig/day- physician will discuss smoking cessation Passive Exposure [...] Sex Assigned at Female 06/11/2024 11:07 AM GLOBAL HEAD ADVERTISER SOLUTIONS Legal Sex Female 5:11 PM CDT Gender Identity Not on file Sexual Orientation Not on file Last Filed Vital Signs Vital Sign Reading Time Taken Comments Blood Pressure 132/80 07/20/2024 11:59 AM GLOBAL HEAD ADVERTISER SOLUTIONS Pulse 89 07/20/2024 11:59 AM GLOBAL HEAD ADVERTISER SOLUTIONS Temperature 37.1 C (98.7 F) 07/20/2024 11:59 AM GLOBAL HEAD ADVERTISER SOLUTIONS Respiratory Rate 14 07/20/2024 11:59 AM GLOBAL HEAD ADVERTISER SOLUTIONS Oxygen Saturation 98% 07/20/2024 11:59 AM GLOBAL HEAD ADVERTISER SOLUTIONS Inhaled Oxygen Concentration - - Weight 71.8 kg (158 lb 3.2 oz) 07/20/2024 11:59 AM GLOBAL HEAD ADVERTISER SOLUTIONS Height 165.1 cm (5' 5) 07/20/2024 11:59 AM GLOBAL HEAD ADVERTISER SOLUTIONS Body Mass Index 26.33 07/20/2024 11:59 AM GLOBAL HEAD ADVERTISER SOLUTIONS Plan of Treatment Health Maintenance Due Date Last Done Comments Cervical Cancer Screening Pap Smear (Age 30 to 64) Every 3 Years 1965 Kidney Health Evaluation 1965 Annual Physical 07/30/1970 Hepatitis C 07/30/1985 Hepatitis B Vaccines (1 of 3 - 19+ 3-dose series) 07/30/1986 Cervical Cancer Screening Pap with HPV Testing (Age 30 to 64) Every 5 Years 07/30/1997 Cervical Cancer Screening with HPV 07/30/1997 COVID-19 Vaccine ( season) 2024 05/01/2021, 09/16/2020, 08/19/2020 PHQ-2 (Physician Barnwell) 05/20/2024 04/01/2024 Hemoglobin A1C 09/09/2024 06/11/2024, 10/0 06/2023, 12/18/2023, Additional history exists Lipid Panel 06/24/2025 06/24/2024 Diabetes: Retinopathy Eye Exam 07/30/2025 07/30/2024, 07/01/2023 Mammogram Screening 07/15/2026 07/15/2024 DTaP, Tdap and Td Vaccines (3 - Td or Tdap) 01/12/2029 01/12/2019, 03/19/2007 Colorectal Cancer Screening Colonoscopy (10 Years) 04/22/2033 04/22/2023, 04/22/2023 Zoster Vaccines Completed 03/08/2020, 01/12/2019 Pneumococcal Vaccine: 50+ Years Completed 06/05/2022 Meningococcal B Vaccine Aged Out No l onger eligible based on patient's age to complete this topic Meningococcal Vaccine Aged Out No pop ashvin eligible based on patient's age to complete this topic RSV Immunizations Under 20 Months Aged Out No longer eligible based on patient's age to complete this topic Procedures Procedure Name Priority Date/Time Associated Diagnosis Comments DIABETIC RETINOPATHY EXAM (POSITIVE)(SCAN ORDER) Routine 07/30/2024 MG SCREENING W DEL GENNARO DIGI Routine 07/15/2024 3:09 PM GLOBAL HEAD ADVERTISER SOLUTIONS Encounter for screening mammogram for malignant neoplasm of breast LIPID PANEL Routine 06/24/2024 10:19 AM GLOBAL HEAD ADVERTISER SOLUTIONS Pure hypercholesterolemia HEMOGLOBIN, GLYCOSYLATED Routine 06/11/2024 10:50 AM GLOBAL HEAD ADVERTISER SOLUTIONS Type 2 diabetes mellitus with stage 2 chronic kidney disease, with long-term current use of insulin ([facility]) COLONOSCOPY Routine 04/22/2023 8:21 AM GLOBAL HEAD ADVERTISER SOLUTIONS from Last 3 Months or Most Recently Relevant to Health Maintenance Results * DIABETIC RETINOPATHY EXAM (POSITIVE) (07/30/2024) us Doc [facility] Scanned SCANNING Final Resu lt [facility] ON[facility] * MG SCREENING W DEL GENNARO DIGI (07/15/2024 3:09 PM GLOBAL HEAD ADVERTISER SOLUTIONS) Anatomical Region Laterality Modality Breast Bilateral Mammography 07/15/2024 3:15 PM GLOBAL HEAD ADVERTISER SOLUTIONS Impressions 07/15/2024 3:17 PM GLOBAL HEAD ADVERTISER SOLUTIONS IMPRESSION: No suspicious mammographic findings. Recommendation: 1. Routine Screening, Bilateral Assessment: ACR BI-RADS 2 - BENIGN FINDING(S) Ordered By: GABRIELE WOODRUFF Interpreted By: Bobby Villegas, 07/15/2024 3:15 PM Narrative 07/15/2024 3:17 PM GLOBAL HEAD ADVERTISER SOLUTIONS [facility] [address] [place] [address] Examination: Screening bilateral mammogram Exam Date/Time: 07/15/2024 3:02 PM Clinical history: No current complaints. Comparison: 04/24/2022 Technique: Digital screening mammography of both breasts was performed. Breast tomosynthesis acquisitions were obtained and reviewed. This study was read with the assistance of a computer-aided detection system. Tissue density: There are scattered areas of fibroglandular density. Findings: No suspicious masses, malignant appearing calcifications, skin thickening or other abnormalities are present. No significant change from the prior exam. Gabriele Woodruff MD MAMMO Final R esult * (ABNORMAL) LIPID PANEL (06/24/2024 10:19 AM GLOBAL HEAD ADVERTISER SOLUTIONS) CHOLESTEROL 238(H) <200 MG/DL 06/24/2024 11:30 AM [facility] TRIGLYCERIDES 309(H) <150 MG/DL 06/24/2024 11:30 AM [facility] HDL 49 >40.0 MG/DL 06/24/2024 11:30 AM [facility] LDL (CALCULATED) 127(H) <100 MG/DL 06/24/2024 11:30 AM [facility] NON HDL CHOLESTEROL 189(H) <130 MG/DL 06/24/2024 11:30 AM [facility] CHOL/HDL RATIO 4.9(H) 0.0 - 4.5 06/24/2024 11:30 AM [facility] VLDL CALCULATION 62(H) 5 - 55 MG/DL 06/24/2024 11:30 AM [facility] LIPID INTERPRETATION 06/24/2024 11:30 AM [facility] Comment: [facility] REPORT RECOMMENDATIONS: ADULT CHILD LOW RISK: CHOLESTEROL <200 <170 TRIGLYCERIDE <150 --- HDL >=60 --- LDL <100 <110 BORDERLINE: CHOLESTEROL 200-239 170-199 TRIGLYCERIDE 150-199 --- HDL 40-59 --- LDL 100-159 110-129 HIGH RISK: CHOLESTEROL >=240 >=200 TRIGLYCERIDE >=200 --- HDL <40 --- LDL >=160 >=130 06/24/2024 10:1 9 AM [facility] Gabriele Woodruff MD LABORATORY Final R esult [facility] [address] [place] [address], * HEMOGLOBIN, GLYCOSYLATED (06/11/2024 10:50 AM GLOBAL HEAD ADVERTISER SOLUTIONS) HGB A1C 9.5 % IDALIAN BE SHEIKH 06/11/2024 10:5 0 AM GLOBAL HEAD ADVERTISER SOLUTIONS Gabriele Woodruff MD LABORATORY Final R esult [facility] [address] [place] [address], from Last 3 Months or Most Recently Relevant to Health Maintenance Insurance [facility] Care Teams Track Maintainer Relationship Specialty Start Date End Date Gabriele Woodruff MD [address] [place], [place] [id number] PCP - General FAMILY PRACTICE 11/07/22
--- OUTSIDE RECORDS SUMMARY | 2024-11-02 10:44 | XMS_ITS | Clinical Summary ---
Author Organization [facility] Address [address] [place] [id number] Care Team Providers Care Community Recreation Coordinator Name Role Phone Unavailable Primary Care Provider Unavailabl e Social History Tobacco Use Types Packs/Day Years Used Date Smoking Tobacco: Never Assessed Comments Unknown Sex and Gender Information Value Date Recorded Sex Assigned at Not on file Legal Sex Female 7:51 AM [employer] WORK[employer] Gender Identity Not on file Sexual [...]
[2024-11-02 12:11] LABS: Hemoglobin A1C 8.6 % (<5.7)
== END 2024-11-02 09:58 | disposition home or self-care (01) ==
LOC: ANHLAB 09:58
PROVIDERS: PCP Family Medicine; Visit Provider Physician Assistant Surgical
DX: L98.7 Excessive and redundant skin and subcutaneous tissue (principal); M79.3 Panniculitis, unspecified
CPT/HCPCS: 36415; 83036